=== PATIENT | male | born 1955 | race Hispanic/Latino ===

== ENCOUNTER 2019-10-05 22:01 | Emergency (ER) | payer SELFPAY ==
[~2019-10-05 22:01] MED LIST: Iopamidol 370 76% 100 ML VIAL ONE
[2019-10-05 23:28] LABS: Bilirubin Negative (Negative); Blood, Urine Small (Negative); Glucose, Urine (Dipstick) Negative (Negative); Leukocyte Negative (Negative); Nitrite Negative (Negative); Protein, Urine (Dipstick) 100 mg/dL (Neg-Trace)
[2019-10-05 23:29] LABS: Clarity Slightly Cloudy (Clear)
[2019-10-05 23:35] LABS: Hemoglobin 17.6 g/dL (14.0-18.0); Mean Corpuscular HGB CONC 31.6 g/dL (32.0-36.0); Mean Corpuscular Hemoglobin 31.2 pg (27.0-31.0); Mean Corpuscular Volume 98.6 fL (78.0-98.0); Mean Platelet Volume 9.2 fL (7.4-10.4); Platelet Count 152 thou/uL (130-400); RBC Distribution Width 10.1 % (11.5-14.5); Red Blood Cell (RBC) Count 5.65 mill/uL (4.70-6.10); Squamous Epithelial None Seen HPF (0-3); WBC/HPF None Seen HPF (0-3); White Blood Cell (WBC) Count 7.1 thou/uL (4.8-10.8)
[2019-10-05 23:36] LABS: Bacteria/HPF None Seen HPF (None Seen)
--- NOTE | 2019-10-05 23:38 | RAD ---
2 view chest: [10/05/2019] Comparison:None available HISTORY: Epigastric pain FINDINGS: Heart and mediastinal contours are grossly unremarkable. No pneumothorax or pleural fluid. No focal consolidation or alveolar edema. Mild increased linear interstitial density with pulmonary hyperinflation noted. IMPRESSION: No acute findings.
[2019-10-05 23:46] LABS: ALT (SGPT) 38 U/L (8-55); AST (SGOT) 71 U/L (5-34); Albumin 4.4 g/dL (3.4-4.8); Alkaline Phosphatase 85 U/L (40-110); Anion Gap 14 mmol/L (10-20); BUN (Urea Nitrogen) 12 mg/dL (8.4-25.7); Bilirubin, Total 1.1 mg/dL (0.2-1.2); Calc. Creatinine Clearance 0 mL/min (70-130); Calcium 8.7 mg/dL (7.8-10.44); Carbon Dioxide 25 mmol/L (23-31); Chloride 97 mmol/L (98-107); Estimated GFR-MDRD 89; Globulin 3.1 g/dL (2.4-3.5); Glucose 100 mg/dL (80-115); Lipase 94 U/L (8-78); Potassium 3.5 mmol/L (3.5-5.1); Protein, Total 7.5 g/dL (5.8-8.1); Sodium 132 mmol/L (136-145)
[2019-10-05 23:53] LABS: Band 19 % (5-11); Hypochromia SLIGHT = 6-15 cells (100X) (0-5/hpf); Lymphocytes 8 % (21-51); MDiff Complete? YES; Monocytes 12 % (0-10); Neutrophil 54 % (42-75); Platelet Morphology Comment Appears Adequate; Reactive Lymphocytes 6 % (0-10); Stomatocytes SLIGHT = 2-5 cells (100X) (0-1/hpf)
[2019-10-06] MEDS ORDERED: Pantoprazole 40 MG VIAL ONE (00:11)
--- NOTE | 2019-10-06 08:06 | CT ---
PRELIMINARY REPORT/[facility]/EMERGENCY AFTER HOURS PROCEDURE EXAM: CT abdomen/pelvis with contrast CLINICAL HISTORY: PT C/O PAIN IN ABD WHEN COUGHING, GETTING PROGRESSIVELY WORSE. COMPARISONS: None provided. TECHNIQUE: CT imaging of the abdomen and pelvis after intravenous administration of 90 mL Isovue-370 iodinated contrast. Multiplanar reconstructions performed. FINDINGS: LIMITATIONS: Mild motion artifact. LOWER CHEST: Normal. LIVER: Normal. GALLBLADDER/BILIARY: No cholelithiasis. No biliary ductal dilatation. SPLEEN: Normal. PANCREAS: Normal. ADRENAL GLANDS: Normal. KIDNEYS/URETERS/URINARY BLADDER: Large exophytic cystic lesion of the right upper renal pole measurin g 7.5 cm AP by 6.6 cm TR by 6.9 cm CC. Kidneys are otherwise normal. Ureters are normal in course and caliber. No urinary stones. Urinary bladder is unremarkable. REPRODUCTIVE: Borderline prostatomegaly. STOMACH/BOWEL: The distal esophagus and stomach are normal. Small bowel is normal in course and calib er. Gaseous prominence of the ascending colon and transverse colon. Diverticulosis of the sigmoid col on. No evidence of acute diverticulitis. APPENDIX: Not visualized. PERITONEUM/MESENTERY: No intraperitoneal free air. No intraperitoneal free fluid. VASCULAR: Trace aortic calcification. Vascular structures are otherwise unremarkable. LYMPH NODES: No lymphadenopathy. MUSCULOSKELETAL: Mild degenerative changes of the imaged spine. No acute osseous abnormality. ABDOMINAL WALL: Peripheral soft tissues are unremarkable. IMPRESSION: 1. No acute abdominal or pelvic abnormality. 2. Diverticulosis of the sigmoid colon without evidence of acute diverticulitis. ELECTRONICALLY SIGNED BY: Rafael Marcos MD Oct 06, 2019 1:10:13 AM ARCHITECTURAL TECHNICIAN FINAL REPORT EMERGENT AFTER HOURS CT OF THE ABDOMEN AND PELVIS WITH CONTRAST: FINDINGS/IMPRESSION: I agree with the findings and impression given in the preliminary report per [facility]. 1. No evidence of acute intraabdominal/pelvic abnormality. 2. Diverticulosis. 3. Right renal cyst.
== END 2019-10-06 01:28 | disposition home or self-care (01) ==
LOC: MADERS 22:01
DX: K85.90 Acute pancreatitis without necrosis or infection, unspecified (principal); F17.210 Nicotine dependence, cigarettes, uncomplicated
CPT/HCPCS: 71046; 74177; 80053; 81003; 81015; 83690; 84484; 85025; 93005; 96374; C9113; Q9967

== ENCOUNTER 2019-10-06 07:05 | Emergency (ER) | payer SELFPAY ==
[2019-10-06] MEDS ORDERED: diphenhydrAMINE 50 MG/ML VIAL ONE (07:24)
[2019-10-06] MEDS ORDERED: Morphine 4 MG/ML VIAL ONE ×2 (07:24→07:52)
[2019-10-06] MEDS ORDERED: Sodium Chloride 0.9% 1,000 ML BAG ONE (07:28)
[2019-10-06 07:45] LABS: #Basophils 0.1 thou/uL (0.0-0.2); #Lymphocytes 1.3 thou/uL (1.20-3.40); #Monocytes 0.6 thou/uL (0.11-0.59); #Neutrophils 4.8 thou/uL (1.40-6.50); %Basophils 1.1 % (0.0-1.0); %Eosinophils 0.1 % (0.0-10.0); %Lymphocytes 19.1 % (21.0-51.0); %Neutrophils 70.7 % (42.0-75.0); Hemoglobin 17.4 g/dL (14.0-18.0); Mean Corpuscular HGB CONC 32.7 g/dL (32.0-36.0); Mean Corpuscular Hemoglobin 31.7 pg (27.0-31.0); Mean Corpuscular Volume 97.1 fL (78.0-98.0); Mean Platelet Volume 9.3 fL (7.4-10.4); Platelet Count 131 thou/uL (130-400); RBC Distribution Width 10.2 % (11.5-14.5); Red Blood Cell (RBC) Count 5.49 mill/uL (4.70-6.10); White Blood Cell (WBC) Count 6.7 thou/uL (4.8-10.8)
[2019-10-06 08:00] LABS: ALT (SGPT) 34 U/L (8-55); AST (SGOT) 62 U/L (5-34); Albumin 4.2 g/dL (3.4-4.8); Alkaline Phosphatase 77 U/L (40-110); Anion Gap 12 mmol/L (10-20); BUN (Urea Nitrogen) 12 mg/dL (8.4-25.7); Bilirubin, Total 1.1 mg/dL (0.2-1.2); Calc. Creatinine Clearance 0 mL/min (70-130); Calcium 8.4 mg/dL (7.8-10.44); Carbon Dioxide 24 mmol/L (23-31); Chloride 98 mmol/L (98-107); Estimated GFR-MDRD Greater than 90; Globulin 2.7 g/dL (2.4-3.5); Glucose 125 mg/dL (80-115); Lipase 170 U/L (8-78); Potassium 3.4 mmol/L (3.5-5.1); Protein, Total 6.9 g/dL (5.8-8.1); Sodium 131 mmol/L (136-145)
[2019-10-06] MEDS ORDERED: Sodium Chloride 0.9% 1,000 ML IV SCH (10:28)
[2019-10-06] MEDS ORDERED: Ondansetron PF 4 MG/2 ML Vial IVP PRN (10:28)
[2019-10-06] MEDS ORDERED: Ondansetron ODT 4 MG TAB SL PRN (10:28)
== END 2019-10-06 09:00 | disposition short-term general hospital (02) ==
LOC: MADERS 07:05
DX: K85.90 Acute pancreatitis without necrosis or infection, unspecified (principal); R03.0 Elevated blood-pressure reading, without diagnosis of hypertension; F17.210 Nicotine dependence, cigarettes, uncomplicated
CPT/HCPCS: 80053; 83605; 83690; 84484; 85025; 96374; 96375; J1200; J2270; J7050